=== PATIENT | female | born 1995 | race American Indian/Alaskan Native ===

== ENCOUNTER 2016-10-24 11:39 | Inpatient (IN) | payer MEDICAID ==
[2016-10-24 13:02] LABS: Basophils % (Auto) 0.5 % (0.0-1.8); Eosinophils % (Auto) 1.6 % (0.0-4.3); Hematocrit 30.8 % (30.3-42.9); Hemoglobin 9.8 gm/dl (10.1-14.3); Mean Corpuscular HGB Conc 32 % (30-34); Mean Corpuscular Hemoglobin 25 pg (28-32); Mean Corpuscular Volume 78 fl (79-97); Platelet Count 325 K/mm3 (140-440); Red Blood Count 3.93 M/mm3 (3.65-5.03); Red Cell Distribution Width 16.4 % (13.2-15.2); White Blood Count 13.6 K/mm3 (4.5-11.0)
[2016-10-24] MEDS ORDERED: SUBLIMAZE IV ONE (13:52)
[2016-10-24] MEDS ORDERED: POLYCILLIN/NS 2 GM/100 ML 2 GM/100 ML BAG IV ONE (14:00)
--- NOTE | 2016-10-24 14:06 | Progress Note ---
Subjective - Subjective Date of service: 10/24/16 Principal diagnosis: Active labor at term, SROM Objective - Vital Signs Latest vital signs: Vital Signs Temp Pulse Resp BP Pulse Ox 10/24/16 12:31 97.8 F 18 98 10/24/16 11:59 67 113/64 Intake and Output 10/23/16 10/24/16 10/24/16 22:59 06:59 14:59 Other: Weight 149 lb Patient Weight 10/25/16 06:59 Weight 149 lb - Labs Labs: Abnormal lab results 10/24/16 Range/Units 12:40 WBC 13.6 H (4.5-11.0) K/mm3 Hgb 9.8 L (10.1-14.3) gm/dl MCV 78 L (79-97) fl MCH 25 L (28-32) pg RDW 16.4 H (13.2-15.2) % [place] % (Auto) 10.2 H (0.0-7.3) % [place] # 1.4 H (0.0-0.8) K/mm3 Seg Neutrophils % 74.0 H (40.0-70.0) % Seg Neutrophils # 10.1 H (1.8-7.7) K/mm3
--- NOTE | 2016-10-24 14:11 | History and Physical Report ---
History of Present Illness Date of examination: 10/24/16 Date of admission: 10/24/16 13:16 Chief complaint: Spontaneous onset of labor with SROM at term History of present illness: 20 yo Late care at 16. 4 weeks with [facility]. Hx of anemia, vitamin D deficiency, and ABS. Boostrix on 08/26/16. 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 Social history: denies: smoking, alcohol abuse, prescription drug abuse, IV drug use - Obstetrical History Expected Date of Delivery: 10/24/16 Actual Gestation: 40 Week(s) 1 Day(s) : 2 Para: 1 Hx # Term Pregnancies: 1 Number of Pregnancies: 0 Spontaneous Abortions: 0 Induced : 0 Number of Living Children: 1 #1 Gender: Male year: Method of Delivery: Vaginal Gestational age at delivery: 39 Medications and Allergies Allergies Allergy/AdvReac Type Severity Reaction Status Date / Time No Known Allergies Allergy Verified 08/10/13 16:29 Home Medications Medication Instructions Recorded Confirmed Last Taken Type No Known Home Medications [No 10/24/16 10/24/16 Unknown History Reported Home Medications] Active Meds: Active Medications Ampicillin Sodium (Polycillin/Ns 2 Gm/100 Ml) 2 gm in 100 mls @ 100 mls/hr IV ONCE ONE Stop: 10/24/16 14:59 Lactated Ringer's (Lactated Ringers) 1,000 mls @ 125 mls/hr IV DIRECT [place] Review of Systems All systems: negative - Vital Signs Vital signs: Vital Signs Pulse BP 67 113/64 10/24/16 11:59 10/24/16 11:59 Temp Pulse Resp BP Pulse Ox 97.8 F 67 18 113/64 98 10/24/16 12:31 10/24/16 11:59 10/24/16 12:31 10/24/16 11:59 10/24/16 12:31 - Physical Exam Breasts: Positive: deferred Cardiovascular: Regular rate Lungs: Positive: Normal air movement Abdomen: Positive: normal appearance, soft Genitourinary (Female): Positive: normal external genitalia Vagina: Positive: normal moisture Uterus: Positive: enlarged, normal contour Extremities: Positive: normal Deep Tendon Reflex Grade: Normal +2 - Obstetrical FHR: category 1 Uterine Contraction Monitor Mode: External Cervical Dilatation: 3 (Per RN) Cervical Effacement Percentage: 70 station: -2 Uterine Contraction Frequency (min): 2-5 Uterine Contraction Duration: 60-120 Uterine Contraction Pattern: Irregular Uterine Tone Measurement Phase: Resting Uterine Contraction Intensity: Moderate Results Result Diagrams: 10/24/16 12:40 Abnormal lab results 10/24/16 Range/Units 12:40 WBC 13.6 H (4.5-11.0) K/mm3 Hgb 9.8 L (10.1-14.3) gm/dl MCV 78 L (79-97) fl MCH 25 L (28-32) pg RDW 16.4 H (13.2-15.2) % [place] % (Auto) 10.2 H (0.0-7.3) % [place] # 1.4 H (0.0-0.8) K/mm3 Seg Neutrophils % 74.0 H (40.0-70.0) % Seg Neutrophils # 10.1 H (1.8-7.7) K/mm3 All other labs normal. Assessment and Plan A: 20 yo with IUP @ 40 weeks Category 1 FHT Active labor GBS positive P: Routine care Continuous monitoring Pain medications/epidural prn GBS prophylaxis Expect vaginal delivery
[2016-10-24] MEDS: LACTATED RINGERS 1,000 ML IV SCH ×3 (14:12→18:22)
[2016-10-24] MEDS ORDERED: ePHEDrine SULFATE IV PRN (16:28)
[2016-10-24] MEDS ORDERED: NARCAN 2 MG/2 ML IV PRN (16:28)
--- NOTE | 2016-10-24 16:28 | Anesthesia Consultation ---
Anesthesia Consult and Med Hx Date of service: 10/24/16 - Airway Anesthetic Teeth Evaluation: Good ROM Head & Neck: Adequate Mental/Hyoid Distance: Adequate Mallampati Class: Class II Intubation Access Assessment: Probably Good - Pulmonary Exam CTA: Yes - Cardiac Exam Cardiac Exam: RRR - Pre-Operative Health Status ASA Pre-Surgery Classification: ASA2 Proposed Anesthetic Plan: Epidural - Pulmonary Hx Asthma: Yes (as a child) COPD: No Hx Pneumonia: No - Cardiovascular System Hx Hypertension: No - Central Nervous System Hx Seizures: No Hx Psychiatric Problems: No - Endocrine Hx Renal Disease: No Hx End Stage Renal Disease: No Hx Hypothyroidism: No Hx Hyperthyroidism: No - Hematic Hx Anemia: No Hx Sickle Cell Disease: No - Other Systems Hx Alcohol Use: Yes (occas. drink)
[2016-10-24] MEDS ORDERED: fentaNYL-BUPIV 2 MCG/ML-0.125% 200 MCG/100 ML BAG EPIDURAL SCH (17:00)
--- NOTE | 2016-10-24 17:00 | Progress Note ---
Assessment and Plan A. Term IUP SROM, GBS +, Active labor Ctx spaced out since epidural FHR reassuring P Continue ongoing OB assessments Initiate pitocin augmentation Anticipate Subjective - Subjective Date of service: 10/24/16 Patient reports: other (Comfortable now with epidural in place. ) Objective - Vital Signs Vital Signs: Vital Signs - 12hr 10/24/16 10/24/16 10/24/16 11:59 12:31 14:44 Temperature 97.8 F Pulse Rate 67 Pulse Rate [ From Monitor] Respiratory 18 18 Rate Blood Pressure 113/64 Blood Pressure [Right Arm] O2 Sat by Pulse 98 Oximetry 10/24/16 10/24/16 10/24/16 15:58 16:03 16:05 Temperature Pulse Rate 92 H Pulse Rate [ From Monitor] Respiratory Rate Blood Pressure 115/59 Blood Pressure [Right Arm] O2 Sat by Pulse 100 83 L 84 Oximetry 10/24/16 10/24/16 10/24/16 16:12 16:17 16:18 Temperature Pulse Rate 96 H 100 H 88 Pulse Rate [ From Monitor] Respiratory Rate Blood Pressure 120/64 115/56 Blood Pressure [Right Arm] O2 Sat by Pulse 71 L 99 Oximetry 10/24/16 10/24/16 10/24/16 16:20 16:22 16:25 Temperature Pulse Rate 90 91 H 88 Pulse Rate [ From Monitor] Respiratory Rate Blood Pressure 112/57 110/57 111/53 Blood Pressure [Right Arm] O2 Sat by Pulse 98 Oximetry 10/24/16 10/24/16 10/24/16 16:27 16:29 16:30 Temperature Pulse Rate 84 91 H 93 H Pulse Rate [ From Monitor] Respiratory Rate Blood Pressure 99/49 102/59 102/54 Blood Pressure [Right Arm] O2 Sat by Pulse 98 Oximetry 10/24/16 10/24/16 10/24/16 16:32 16:35 16:36 Temperature 97.7 F Pulse Rate 99 H 91 H Pulse Rate [ 88 From Monitor] Respiratory 18 Rate Blood Pressure 104/56 Blood Pressure 104/56 [Right Arm] O2 Sat by Pulse 99 99 Oximetry 10/24/16 10/24/16 10/24/16 16:37 16:41 16:42 Temperature Pulse Rate 87 98 H 74 Pulse Rate [ From Monitor] Respiratory Rate Blood Pressure 110/59 Blood Pressure [Right Arm] O2 Sat by Pulse 100 100 Oximetry 10/24/16 10/24/16 10/24/16 16:46 16:47 16:51 Temperature Pulse Rate 93 H 89 75 Pulse Rate [ From Monitor] Respiratory Rate Blood Pressure 98/64 111/55 Blood Pressure [Right Arm] O2 Sat by Pulse 100 Oximetry 10/24/16 16:52 Temperature Pulse Rate 87 Pulse Rate [ From Monitor] Respiratory Rate Blood Pressure Blood Pressure [Right Arm] O2 Sat by Pulse 99 Oximetry - Exam Breasts: deferred Lungs: Normal air movement Abdomen: Present: normal appearance, soft Vulva: both: normal FHR: category 1 Uterine Contraction Monitor Mode: External Cervical Dilatation: 6.5 (BBOW palpated and AROM'd with clear fluid) Cervical Effacement Percentage: 80 station: -2 Uterine Contraction Pattern: Irregular Uterine Contraction Intensity: Moderate - Labs Labs: Abnormal Labs 10/24/16 12:40 WBC 13.6 H Hgb 9.8 L MCV 78 L MCH 25 L RDW 16.4 H [place] % (Auto) 10.2 H [place] # 1.4 H Seg Neutrophils % 74.0 H Seg Neutrophils # 10.1 H Laboratory Results - last 24 hr 10/24/16 10/24/16 12:40 12:40 WBC 13.6 H RBC 3.93 Hgb 9.8 L Hct 30.8 MCV 78 L MCH 25 L MCHC 32 RDW 16.4 H Plt Count 325 Lymph % (Auto) 13.7 [place] % (Auto) 10.2 H Eos % (Auto) 1.6 Baso % (Auto) 0.5 Lymph # 1.9 [place] # 1.4 H Eos # 0.2 Baso # 0.1 Seg Neutrophils % 74.0 H Seg Neutrophils # 10.1 H Blood Type A POSITIVE Antibody Screen Negative
[2016-10-24] MEDS: PITOCin/NS 30 UNIT/500ML 30 UNITS/500 ML BAG IV SCH ×2 (17:21→18:03)
[2016-10-24] MEDS ORDERED: POLYCILLIN/NS 1 GM/50 ML 1 GM/50 ML BAG IV SCH (18:21)
--- NOTE | 2016-10-24 18:31 | Progress Note ---
Assessment and Plan A: with IUP @40 weeks SOOL, SROM with AROM of forebag Epidural in place Adequate progess with pitocin augmentation Category 1 FHT GBS+ P: Continue pitocin augmentation Continuious monitoring Epidural pain management GBS prophylaxis Expect vaginal delivery Subjective - Subjective Date of service: 10/24/16 Interval history: 20 yo Late care at 16. 4 weeks with [facility]. Hx of anemia, vitamin D deficiency, and ABS. Boostrix on 08/26/16. Patient reports: other (Comfortable now with epidural in place. ) Objective - Vital Signs Vital Signs: Vital Signs - 12hr 10/24/16 10/24/16 10/24/16 11:59 12:31 14:44 Temperature 97.8 F Pulse Rate 67 Pulse Rate [ From Monitor] Respiratory 18 18 Rate Blood Pressure 113/64 Blood Pressure [Right Arm] O2 Sat by Pulse 98 Oximetry 10/24/16 10/24/16 10/24/16 15:58 16:03 16:05 Temperature Pulse Rate 92 H Pulse Rate [ From Monitor] Respiratory Rate Blood Pressure 115/59 Blood Pressure [Right Arm] O2 Sat by Pulse 100 83 L 84 Oximetry 10/24/16 10/24/16 10/24/16 16:12 16:17 16:18 Temperature Pulse Rate 96 H 100 H 88 Pulse Rate [ From Monitor] Respiratory Rate Blood Pressure 120/64 115/56 Blood Pressure [Right Arm] O2 Sat by Pulse 71 L 99 Oximetry 10/24/16 10/24/16 10/24/16 16:20 16:22 16:25 Temperature Pulse Rate 90 91 H 88 Pulse Rate [ From Monitor] Respiratory Rate Blood Pressure 112/57 110/57 111/53 Blood Pressure [Right Arm] O2 Sat by Pulse 98 Oximetry 10/24/16 10/24/16 10/24/16 16:27 16:29 16:30 Temperature Pulse Rate 84 91 H 93 H Pulse Rate [ From Monitor] Respiratory Rate Blood Pressure 99/49 102/59 102/54 Blood Pressure [Right Arm] O2 Sat by Pulse 98 Oximetry 10/24/16 10/24/16 10/24/16 16:32 16:35 16:36 Temperature 97.7 F Pulse Rate 99 H 91 H Pulse Rate [ 88 From Monitor] Respiratory 18 Rate Blood Pressure 104/56 Blood Pressure 104/56 [Right Arm] O2 Sat by Pulse 99 99 Oximetry 10/24/16 10/24/16 10/24/16 16:37 16:41 16:42 Temperature Pulse Rate 87 98 H 74 Pulse Rate [ From Monitor] Respiratory Rate Blood Pressure 110/59 Blood Pressure [Right Arm] O2 Sat by Pulse 100 100 Oximetry 10/24/16 10/24/16 10/24/16 16:46 16:47 16:51 Temperature Pulse Rate 93 H 89 75 Pulse Rate [ From Monitor] Respiratory Rate Blood Pressure 98/64 111/55 Blood Pressure [Right Arm] O2 Sat by Pulse 100 Oximetry 10/24/16 10/24/16 10/24/16 16:52 16:56 16:57 Temperature 97.9 F Pulse Rate 87 70 78 Pulse Rate [ 78 From Monitor] Respiratory 18 Rate Blood Pressure 98/51 Blood Pressure 158/89 [Right Arm] O2 Sat by Pulse 99 100 Oximetry 10/24/16 10/24/16 10/24/16 17:01 17:03 17:06 Temperature Pulse Rate 70 71 72 Pulse Rate [ From Monitor] Respiratory Rate Blood Pressure 106/53 104/55 Blood Pressure [Right Arm] O2 Sat by Pulse 100 Oximetry 10/24/16 10/24/16 10/24/16 17:07 17:10 17:12 Temperature Pulse Rate 66 87 81 Pulse Rate [ From Monitor] Respiratory Rate Blood Pressure 106/64 Blood Pressure [Right Arm] O2 Sat by Pulse 99 99 Oximetry 10/24/16 10/24/16 10/24/16 17:15 17:17 17:20 Temperature Pulse Rate 73 71 65 Pulse Rate [ From Monitor] Respiratory Rate Blood Pressure 107/59 108/59 Blood Pressure [Right Arm] O2 Sat by Pulse 100 Oximetry 10/24/16 10/24/16 10/24/16 17:22 17:24 17:26 Temperature Pulse Rate 75 91 H 98 H Pulse Rate [ From Monitor] Respiratory Rate Blood Pressure 123/75 Blood Pressure [Right Arm] O2 Sat by Pulse 99 88 Oximetry 10/24/16 10/24/16 10/24/16 17:27 17:28 17:30 Temperature Pulse Rate 81 75 91 H Pulse Rate [ From Monitor] Respiratory Rate Blood Pressure 116/66 108/63 Blood Pressure [Right Arm] O2 Sat by Pulse 99 Oximetry 10/24/16 10/24/16 10/24/16 17:32 17:36 17:37 Temperature Pulse Rate 77 95 H 76 Pulse Rate [ From Monitor] Respiratory Rate Blood Pressure 119/69 Blood Pressure [Right Arm] O2 Sat by Pulse 99 100 Oximetry 10/24/16 10/24/16 10/24/16 17:42 17:47 17:52 Temperature Pulse Rate 121 H 73 95 H Pulse Rate [ From Monitor] Respiratory Rate Blood Pressure Blood Pressure [Right Arm] O2 Sat by Pulse 98 99 99 Oximetry 10/24/16 10/24/16 10/24/16 17:53 17:57 18:02 Temperature Pulse Rate 93 H 101 H 93 H Pulse Rate [ From Monitor] Respiratory Rate Blood Pressure 121/68 Blood Pressure [Right Arm] O2 Sat by Pulse 98 99 Oximetry 10/24/16 10/24/16 10/24/16 18:03 18:07 18:12 Temperature Pulse Rate 94 H 98 H 87 Pulse Rate [ From Monitor] Respiratory Rate Blood Pressure 116/75 Blood Pressure [Right Arm] O2 Sat by Pulse 97 98 Oximetry 10/24/16 10/24/16 18:18 18:19 Temperature Pulse Rate 90 84 Pulse Rate [ From Monitor] Respiratory Rate Blood Pressure 117/59 Blood Pressure [Right Arm] O2 Sat by Pulse 99 Oximetry - Exam Cardiovascular: Regular rate Lungs: Normal air movement Uterus: Present: normal FHR: category 1 Uterine Contraction Monitor Mode: External Cervical Dilatation: 8 Cervical Effacement Percentage: 80 station: -1--2 Uterine Contraction Frequency (min): q2-3 Uterine Contraction Pattern: Regular Uterine Contraction Intensity: Strong/Firm - Labs Labs: Abnormal Labs 10/24/16 12:40 WBC 13.6 H Hgb 9.8 L MCV 78 L MCH 25 L RDW 16.4 H [place] % (Auto) 10.2 H [place] # 1.4 H Seg Neutrophils % 74.0 H Seg Neutrophils # 10.1 H Laboratory Results - last 24 hr 10/24/16 10/24/16 12:40 12:40 WBC 13.6 H RBC 3.93 Hgb 9.8 L Hct 30.8 MCV 78 L MCH 25 L MCHC 32 RDW 16.4 H Plt Count 325 Lymph % (Auto) 13.7 [place] % (Auto) 10.2 H Eos % (Auto) 1.6 Baso % (Auto) 0.5 Lymph # 1.9 [place] # 1.4 H Eos # 0.2 Baso # 0.1 Seg Neutrophils % 74.0 H Seg Neutrophils # 10.1 H Blood Type A POSITIVE Antibody Screen Negative
[2016-10-24] MEDS ORDERED: PITOCin/NS 20 UNIT/1000ML DRIP 20,000 MILLIUNITS/1,000 ML BAG IV ONE (18:57)
--- NOTE | 2016-10-24 19:55 | Procedure Note ---
OB Delivery Note - Delivery Date of Delivery: 10/24/16 (1928) Surgeon: KATIE ISAAC Estimated blood loss: 100cc - Vaginal Delivery position: OA (Baby Arnav delivered, over intact perineum, weighing 7# 14oz. He responded to stimulation and was placed on mom's chest for skin to skin. Cord clamped and cut by Grandmother at 5 minutes of life. Mom and baby doing well.) Intrapartum events: none Delivery induction: none Delivery augmentation: pitocin Delivery monitor: external FHT, external uterine Route of delivery: Delivery placenta: spontaneous (An delivery) Delivery cord: 3 umbilical vessels Episiotomy: none Delivery laceration: other (bilateral labial laceration, hemostatic and self approximated.) Anesthesia: epidural - Infant A at 1 minute: 8 at 5 minutes: 9 Gender: Male (Arnav)
[2016-10-24] MEDS ORDERED: ZOFRAN IV PRN (20:07)
[2016-10-24] MEDS ORDERED: MILK OF MAGNESIA PO PRN (20:07)
[2016-10-24] MEDS ORDERED: DERMOPLAST TP PRN (20:07)
[2016-10-24] MEDS ORDERED: TUCKS PAD TP PRN (20:07)
[2016-10-24] MEDS ORDERED: LANSINOH TP PRN (20:07)
[2016-10-24] MEDS ORDERED: ANUCORT-HC PR PRN (20:07)
[2016-10-24] MEDS ORDERED: DULCOLAX PR PRN (20:07)
[2016-10-24] MEDS ORDERED: NORCO 5/325 PO PRN (20:07)
[2016-10-24] MEDS ORDERED: TYLENOL PO PRN (20:07)
[2016-10-24] MEDS ORDERED: SODIUM CHLORIDE FLUSH SYRINGE 10 ML IV NR (21:00)
[2016-10-24] MEDS: MOTRIN PO SCH (22:37)
[2016-10-25] MEDS: MOTRIN PO SCH ×4 (05:46→21:00)
--- NOTE | 2016-10-25 09:12 | Progress Note ---
Assessment and Plan A: IUP term delivered s/p P: Routine care Discharge tomorrow Subjective - Subjective Date of service: 10/25/16 Interval history: 20 yo Late care at 16. 4 weeks with [facility]. Hx of anemia, vitamin D deficiency, and ABS. Boostrix on 08/26/16. Patient reports: appetite normal, voiding normally, pain well controlled, ambulating normally : doing well Objective - Vital Signs Latest vital signs: Vital Signs Temp Pulse Pulse Resp BP BP Pulse Ox 10/25/16 05:00 98.1 F 73 20 112/68 10/25/16 00:00 98.8 F 79 20 118/54 10/24/16 21:24 98.4 F 86 20 106/63 10/24/16 20:33 81 118/60 10/24/16 20:03 96 H 136/59 10/24/16 19:55 98.1 F 18 10/24/16 19:48 102 H 133/51 10/24/16 19:23 104 H 100 10/24/16 19:18 102 H 100 10/24/16 19:13 97 H 100 10/24/16 19:08 92 H 99 10/24/16 19:04 100 H 142/64 10/24/16 19:03 98.4 F 101 H 93 H 20 142/64 99 10/24/16 18:58 96 H 100 10/24/16 18:53 85 100 10/24/16 18:49 77 94/52 10/24/16 18:48 80 99 10/24/16 18:43 76 99 10/24/16 18:38 93 H 98 10/24/16 18:34 75 100/52 10/24/16 18:33 94 H 99 10/24/16 18:28 93 H 100 10/24/16 18:23 69 100 10/24/16 18:19 84 117/59 10/24/16 18:18 90 99 10/24/16 18:12 87 98 10/24/16 18:07 98 H 97 10/24/16 18:03 94 H 116/75 10/24/16 18:02 93 H 99 10/24/16 17:57 101 H 98 10/24/16 17:53 93 H 121/68 10/24/16 17:52 95 H 99 10/24/16 17:47 73 99 10/24/16 17:42 121 H 98 10/24/16 17:37 76 100 10/24/16 17:36 95 H 119/69 10/24/16 17:32 77 99 10/24/16 17:30 91 H 108/63 10/24/16 17:28 75 116/66 10/24/16 17:27 81 99 10/24/16 17:26 98 H 123/75 10/24/16 17:24 91 H 88 10/24/16 17:22 75 99 10/24/16 17:20 65 108/59 10/24/16 17:17 71 100 10/24/16 17:15 73 107/59 10/24/16 17:12 81 99 10/24/16 17:10 87 106/64 10/24/16 17:07 66 99 10/24/16 17:06 72 104/55 10/24/16 17:03 71 100 10/24/16 17:01 70 106/53 10/24/16 16:57 97.9 F 78 78 18 158/89 100 10/24/16 16:56 70 98/51 10/24/16 16:52 87 99 10/24/16 16:51 75 111/55 10/24/16 16:47 89 100 10/24/16 16:46 93 H 98/64 10/24/16 16:42 74 100 10/24/16 16:41 98 H 110/59 10/24/16 16:37 87 100 10/24/16 16:36 97.7 F 88 18 104/56 99 10/24/16 16:35 91 H 104/56 10/24/16 16:32 99 H 99 10/24/16 16:30 93 H 102/54 10/24/16 16:29 91 H 102/59 10/24/16 16:27 84 99/49 98 10/24/16 16:25 88 111/53 10/24/16 16:22 91 H 110/57 98 10/24/16 16:20 90 112/57 10/24/16 16:18 88 115/56 10/24/16 16:17 100 H 120/64 99 10/24/16 16:12 96 H 71 L 10/24/16 16:05 84 10/24/16 16:03 83 L 10/24/16 15:58 92 H 115/59 100 10/24/16 14:44 18 10/24/16 12:31 97.8 F 18 98 10/24/16 11:59 67 113/64 Intake and Output 10/24/16 10/25/16 10/25/16 22:59 06:59 14:59 Intake Total 2300 865 Output Total 950 700 Balance 1350 165 Intake: IV 2300 625 Lactated Ringers 1,000 ml 2000 @ 125 mls/hr IV DIRECT [place] Rx#:[id number] PITOCin/NS 20 UNIT/1000ML 250 625 DRIP 20,000 milliunits In 1,000 ml As IV .STK- MED ONE Rx#:[id number] POLYCILLIN/NS 1 GM/50 ML 50 1 gm In 50 ml @ 100 mls/ hr IV Q4HR [place] Rx#: [id number] Intake, Free Water 240 Output: Urine 900 700 Void 900 700 Emesis 50 Other: Total, Output Amount 900 700 Estimated Blood Loss 100 - Exam Cardiovascular: Present: Regular rate Lungs: Present: Normal air movement Abdomen: Present: normal appearance, soft Uterus: Present: normal, firm, fundal height below umbilicus Extremities: Present: normal Deep Tendon Reflex Grade: Normal +2 - Labs Labs: Abnormal lab results 10/24/16 Range/Units 12:40 WBC 13.6 H (4.5-11.0) K/mm3 Hgb 9.8 L (10.1-14.3) gm/dl MCV 78 L (79-97) fl MCH 25 L (28-32) pg RDW 16.4 H (13.2-15.2) % [place] % (Auto) 10.2 H (0.0-7.3) % [place] # 1.4 H (0.0-0.8) K/mm3 Seg Neutrophils % 74.0 H (40.0-70.0) % Seg Neutrophils # 10.1 H (1.8-7.7) K/mm3
--- NOTE | 2016-10-25 09:16 | Discharge Summary ---
Providers - Providers Date of Admission: 10/24/16 13:16 Date of discharge: 10/26/16 Attending physician: OZZY LOMBARDI MD Primary care physician: DIRECTOR OF CARDIAC CATH LAB Hospitalization Delivery: Laceration: other (bilateral labial hemostatic and self approximated) Discharge diagnosis: IUP at term delivered baby: male (Arnav) Hospital course: uneventful Condition at discharge: Good Disposition: DISCHARGED TO HOME OR SELFCARE Plan - Provider Discharge Summary Activity: routine, no sex for 6 weeks, no heavy lifting 4 weeks, no strenuous exercise Diet: routine Instructions: routine Additional instructions: [] Smoking cessation referral if applicable(refer to patient education folder for contact #) [] Refer to [facility] Booklet Call your doctor immediately for: * Fever > 100.5 * Heavy vaginal bleeding ( >1 pad per hour) * Severe persistent headache * Shortness of breath * Reddened, hot, painful area to leg or breast * Drainage or odor from incision. * Keep incision clean and dry at all times and follow doctor's instructions regarding bathing/showering - Follow up plan Follow up: [facility] [Provider Group] - 6 Weeks
--- NOTE | 2016-10-25 09:55 | Progress Note ---
Subjective Date of service: 10/25/16 Principal diagnosis: interuterine Interval history: Patient seen post-delivery day 1, very satisfied with epidural during labor, ambulating well, has some soreness where epidural was placed. Objective - Constitutional Vitals: Vital Signs - 12hr 10/25/16 10/25/16 00:00 05:00 Temperature 98.8 F 98.1 F Pulse Rate [ 79 73 From Monitor] Respiratory 20 20 Rate Blood Pressure 118/54 112/68 [Right Arm] - Labs CBC & Chem 7: 10/24/16 12:40 Labs: Abnormal lab results 10/24/16 Range/Units 12:40 WBC 13.6 H (4.5-11.0) K/mm3 Hgb 9.8 L (10.1-14.3) gm/dl MCV 78 L (79-97) fl MCH 25 L (28-32) pg RDW 16.4 H (13.2-15.2) % [place] % (Auto) 10.2 H (0.0-7.3) % [place] # 1.4 H (0.0-0.8) K/mm3 Seg Neutrophils % 74.0 H (40.0-70.0) % Seg Neutrophils # 10.1 H (1.8-7.7) K/mm3
[2016-10-25] MEDS ORDERED: PRENATAL VITAMIN PO SCH (10:00)
[2016-10-25 10:40] LABS: Hematocrit 28.6 % (30.3-42.9); Hemoglobin 9.3 gm/dl (10.1-14.3)
[2016-10-26] MEDS: MOTRIN PO SCH (04:44)
[2016-10-26 12:13] VITALS: BP 111/51
== END 2016-10-26 13:10 | disposition home or self-care (01) | DRG 775 ==
LOC: TRG 11:39 → LD 13:16 → OB 21:27
PROVIDERS: ADMIT Obstetrics & Gynecology; ATTEND Obstetrics & Gynecology
PROC: 10E0XZZ Delivery of Products of Conception, External Approach (ICD-10-PCS; principal; 2016-10-24)
PROC: 3E0S3CZ (ICD-10-PCS; 2016-10-24)
PROC: 00HU33Z Insertion of Infusion Device into Spinal Canal, Percutaneous Approach (ICD-10-PCS; 2016-10-24)
DX: O42.92 Full-term premature rupture of membranes, unspecified as to length of time between rupture and onset of labor (principal); O99.824 Streptococcus B carrier state complicating childbirth; O99.52 Diseases of the respiratory system complicating childbirth; Z37.0 Single live birth; Z3A.40 40 weeks gestation of pregnancy; J45.909 Unspecified asthma, uncomplicated; O70.0 First degree perineal laceration during delivery
CPT/HCPCS: 36415; 85014; 85018; 85025; 86850; 86900; 86901; 99211; A6250; G0463; J0290; J2590; J3010; J7120

== ENCOUNTER 2019-02-11 00:02 | Outpatient (CLI) | payer MEDICAID ==
[2019-02-11 00:55] VITALS: BP 114/64
--- NOTE | 2019-02-12 20:58 | Ultrasound Report ---
PROCEDURE: US OB FOLLOW UP TECHNIQUE: Real-time transabdominal sonography of the uterus, placenta, amniotic fluid, adnexa, and fetus was performed with image documentation. Measurements were obtained to determine age/size. M-mode Doppler was used to document heartbeat. ADDITIONAL GESTATION: None HISTORY: wellbeing COMPARISONS: None. FINDINGS: IUP: Single live intrauterine gestation. Position: Cephalic Placental position: Right lateral and grade 1., without previa . Amniotic fluid volume Normal. ARLINE is 8.7 cm. Cardiac activity: Regular rhythm at 140 bpm. ANATOMY: Not evaluated. BIOMETRY: Biparietal diameter: 9.2 cm corresponding to 37 weeks and 2 days. Head circumference: 33.3 cm corresponding to 38 weeks. abdominal circumference: 3.4 cm corresponding to 30 weeks and 1 day. Femur length: 7.5 cm corresponding to 30 weeks and 2 days. Ratio biometry: Normal . Estimated Weight: 3375 grams +/- grams. ounces +/- .ounces. . percentile. Mean Gestational Age (composite criteria) based on today's measurements: 38 weeks. Estimated Due Date (earliest scan): 02/26/2019. IMPRESSION: Single live intrauterine gestation at 38 weeks. Estimated due date: 02/26/2019. This document is electronically signed by Rodney Claros MD., Feb 12 2019 09:56:30 PM ET
== END 2019-02-11 01:11 | disposition home or self-care (01) ==
LOC: TRG 00:02
PROVIDERS: ATTEND Obstetrics & Gynecology
DX: O47.1 False labor at or after 37 completed weeks of gestation (principal); Z3A.40 40 weeks gestation of pregnancy
CPT/HCPCS: 59025

== ENCOUNTER 2019-02-12 18:21 | Outpatient (CLI) | payer MEDICAID ==
[2019-02-12 20:49] VITALS: BP 110/59
--- NOTE | 2019-02-12 21:01 | Ultrasound Report ---
PROCEDURE: US OB BPP WO NON-STRESS TECHNIQUE: Sonographic evaluation for breathing, movement, tone, and amniotic flui d volume was performed. HISTORY: well being COMPARISONS: None . FINDINGS: FETUS Amniotic fluid volume Normal-score 2. At least one vertical pocket >2 cm or more in vertical axis . breathing: Normal-score 2 . movement: Normal-score 2 . tone: Normal-score 2 . Score: 8 of 8 . heart rate 140 bpm. IMPRESSION: Normal biophysical profile . This document is electronically signed by Rodney Claros MD., Feb 12 2019 09:59:24 PM ET
--- NOTE | 2019-02-13 15:09 | Event Note ---
Date: 02/12/19 Triage patient on 02/12/19: 23 year old presents for US at 40 3/7 weeks. Sent from office for BPP. BPP 04/22. Normal ARLINE reported by branch service specialist. Reactive NST. Active movement. Patient is scheduled for induction of labor on Friday02/15/19. Advised patient to perform daily movement counting. Signs of labor and warning signs of late discussed with patient.
== END 2019-02-12 20:57 | disposition home or self-care (01) ==
LOC: TRG 18:21
PROVIDERS: ATTEND Obstetrics & Gynecology
DX: O47.1 False labor at or after 37 completed weeks of gestation (principal); Z3A.40 40 weeks gestation of pregnancy
CPT/HCPCS: 59025; 76816; 76819

== ENCOUNTER 2019-02-14 21:13 | Inpatient (IN) | payer MEDICAID ==
[2019-02-15] MEDS ORDERED: BRETHINE IVP PRN (01:52)
[2019-02-15] MEDS ORDERED: SUBLIMAZE IV PRN (01:52)
[2019-02-15] MEDS ORDERED: BRETHINE SUB-Q PRN (01:52)
[2019-02-15] MEDS ORDERED: AMPICILLIN/NS 2 GM/100 ML 2 GM/100 ML BAG IV ONE (01:52)
[2019-02-15] MEDS ORDERED: XYLOCAINE 2% INFILTRATI ONE (01:52)
[2019-02-15] MEDS ORDERED: LACTATED RINGERS 1,000 ML ONE (01:56)
[2019-02-15] MEDS ORDERED: SUBLIMAZE ONE (01:56)
[2019-02-15] MEDS: LACTATED RINGERS 1,000 ML IV SCH ×3 (02:00→06:11)
[2019-02-15] MEDS ORDERED: PITOCin/NS 20 UNIT/1000ML DRIP 20 UNITS/1,000 ML BAG IV SCH (02:00)
[2019-02-15 02:19] LABS: Hematocrit 28.6 % (30.3-42.9); Hemoglobin 9.4 gm/dl (10.1-14.3); Mean Corpuscular HGB Conc 33 % (30-34); Mean Corpuscular Volume 78 fl (79-97); Platelet Count 310 K/mm3 (140-440); Red Blood Count 3.67 M/mm3 (3.65-5.03); Red Cell Distribution Width 16.2 % (13.2-15.2)
--- NOTE | 2019-02-15 02:21 | History and Physical Report ---
History of Present Illness Date of examination: 02/15/19 Date of admission: 02/15/19 01:33 Chief complaint: 23 year old presents with complaint of contractions for several days. Patient denies leaking of fluid or vaginal bleeding. Patient reports active movement. Patient received care at [facility] and was able to look up records. LMP 05/23/18. EDC 02/09/19. significant for the following: GBS + (GBS bacteriuria), asthma, late presentation for care, varicella nonimmune, enlarged thyroid (maternal), vitamin D deficiency (supplemented with vitamin D). labs are as follows: A+, antibody screen negative, rubella immune, vari qamar nonimmune, HIV negative, hepatitis B surface antigen negative, RPR nonreactive, quad screen negative, hemoglobin electrophoresis negative, herpes type 2 serology negative, pap negative, GC negative, CT negative, trichomonas negative, 1 hour sugar test 101. Past History Past Medical History: asthma, other (enlarged thyroid) Past Surgical History: no surgical history [employer] History: denies: abnormal PAP smear, chlamydia, gonorrhea, hepatitis B, herpes, HIV, syphilis, trichomonas Family/Genetic History: none Social history: lives with family, full code. denies: smoking, alcohol abuse, prescription drug abuse, IV drug use - Obstetrical History Expected Date of Delivery: 02/09/19 Actual Gestation: 40 Week(s) 6 Day(s) : 4 Para: 2 Hx # Term Pregnancies: 2 Number of Pregnancies: 0 Spontaneous Abortions: 1 Induced : 0 Number of Living Children: 2 Medications and Allergies Allergies Allergy/AdvReac Type Severity Reaction Status Date / Time No Known Allergies Allergy Verified 08/10/13 16:29 Home Medications Medication Instructions Recorded Confirmed Last Taken Type Ferrous Sulfate [Feosol 325 MG tab] 1 tab PO BID 02/15/19 02/15/19 02/13/19 History Vit-Fe Fumar-FA [ 1 tab PO QDAY 02/15/19 02/15/19 02/13/19 History Vitamin] Active Meds: Active Medications Ephedrine Sulfate (Ephedrine Sulfate) 10 mg IV Q2M PRN PRN Reason: Hypotension Fentanyl (Sublimaze) 100 mcg IV Q2H PRN PRN Reason: Labor Pain Last Admin: 02/15/19 02:10 Dose: 100 mcg Documented by: Oxytocin/Sodium Chloride (Pitocin/Ns 20 Unit/1000ml Drip) 20 units in 1,000 mls @ 125 mls/hr IV DIRECT [place] Lactated Ringer's (Lactated Ringers) 1,000 mls @ 125 mls/hr IV DIRECT [place] Last Admin: 02/15/19 02:00 Dose: 1,200 mls/hr Documented by: Ampicillin Sodium (Ampicillin/Ns 2 Gm/100 Ml) 2 gm in 100 mls @ 100 mls/hr IV ONCE ONE; Protocol Stop: 02/15/19 02:51 Last Admin: 02/15/19 02:20 Dose: 100 mls/hr Documented by: Terbutaline Sulfate (Brethine) 0.25 mg SUB-Q ONCE PRN PRN Reason: Hyperstimulation/Hypertonicity Terbutaline Sulfate (Brethine) 0.25 mg IVP ONCE PRN PRN Reason: Hyperstimulation/Hypertonicity Review of Systems All systems: negative (contractions) - Vital Signs Vital signs: Vital Signs Pulse Pulse Ox 79 97 02/14/19 21:32 02/14/19 21:32 Temp Pulse Resp BP Pulse Ox 98.6 F 93 H 22 124/71 98 02/15/19 02:02 02/15/19 01:51 02/15/19 02:02 02/15/19 01:51 02/15/19 01:15 - Physical Exam Cardiovascular: Regular rate Lungs: Positive: Clear to auscultation Abdomen: Positive: normal appearance, soft. Negative: distention, tenderness, guarding, rigidity Genitourinary (Female): Positive: normal external genitalia, normal perenium. Negative: perineal/vulvar lesions (no lesions seen on careful exam with bright light upon admission) Vagina: Positive: normal moisture Uterus: Positive: enlarged Anus/Rectum: Positive: normal perianal skin Extremities: Positive: normal. Negative: tenderness, edema - Obstetrical FHR: category 1 Uterine Contraction Monitor Mode: External Cervical Dilatation: 5 Cervical Effacement Percentage: 90 station: -1 Uterine Contraction Pattern: Regular Uterine Contraction Intensity: Moderate Results Result Diagrams: 02/15/19 01:30 Abnormal lab results 02/15/19 Range/Units 01:30 WBC 12.5 H (4.5-11.0) K/mm3 Hgb 9.4 L (10.1-14.3) gm/dl Hct 28.6 L (30.3-42.9) % MCV 78 L (79-97) fl MCH 26 L (28-32) pg RDW 16.2 H (13.2-15.2) % All other labs normal. Assessment and Plan A: at 40 weeks, 6 days gestation. Active labor. GBS positive. P: Admit. Continuous EFM. GBS prophylaxis. Anticipate vaginal .
[2019-02-15] MEDS ORDERED: NARCAN 2 MG/2 ML IV PRN (04:33)
--- NOTE | 2019-02-15 04:35 | Anesthesia Consultation ---
Anesthesia Consult and Med Hx Date of service: 02/15/19 - Airway Anesthetic Teeth Evaluation: Good ROM Head & Neck: Adequate Mental/Hyoid Distance: Adequate Mallampati Class: Class II Intubation Access Assessment: Probably Good - Pulmonary Exam CTA: Yes - Cardiac Exam Cardiac Exam: RRR - Pre-Operative Health Status ASA Pre-Surgery Classification: ASA2 Proposed Anesthetic Plan: Epidural - Pulmonary Hx Smoking: No Hx Asthma: Yes ("I had asthma at the age of 10") Hx Respiratory Symptoms: No SOB: No COPD: No Home Oxygen Therapy: No Hx Pneumonia: No Hx Sleep Apnea: No - Cardiovascular System Hx Hypertension: No Hx Coronary Artery Disease: No Hx Heart Attack/AMI: No Hx Angina: No Hx Percutaneous Transluminal Coronary Angioplasty (PTCA): No Hx Cardia Arrhythmia: No Hx Pacemaker: No Hx Internal Defibrillator: No Hx Valvular Heart Disease: No Hx Heart Murmur: No Hx Peripheral Vascular Disease: No - Central Nervous System Hx Neuromuscular Disorder: No Hx Seizures: No CVA: No Hx Back Pain: No Hx Psychiatric Problems: No - Gastrointestinal Hx Ulcer: No Hx Gastroesophageal Reflux Disease: Yes - Endocrine Hx Renal Disease: No Hx End Stage Renal Disease: No Hx Cirrhosis: No Hx Liver Disease: No Hx Insulin Dependent Diabetes: No Hx Non-Insulin Dependent Diabetes: No Hx Thyroid Disease: No Hx Hypothyroidism: No Hx Hyperthyroidism: No - Hematic Hx Anemia: No Hx Sickle Cell Disease: No - Other Systems Hx Alcohol Use: No Hx Substance Use: No Hx Cancer: No Hx Obesity: No
[2019-02-15] MEDS ORDERED: fentaNYL-BUPIV 2 MCG/ML-0.125% 200 MCG/100 ML BAG EPIDURAL SCH (05:00)
[2019-02-15] MEDS: AMPICILLIN/NS 1 GM/50 ML 1 GM/50 ML BAG IV SCH ×2 (06:11→09:51)
--- NOTE | 2019-02-15 10:32 | Progress Note ---
Assessment and Plan - Patient Problems (1) 40 weeks gestation of Current Visit: Yes Status: Acute (2) Active labor at term Current Visit: Yes Status: Acute Plan to address problem: Continue current management Start oxytocin for labor augmentation Anticipate vaginal delivery (3) Spontaneous rupture of amniotic membranes Current Visit: Yes Status: Acute (4) Post-dates Current Visit: Yes Status: Acute Qualifiers: Post-term type: 40-42 weeks gestation Qualified Code(s): O48.0 - Post-term Subjective - Subjective Date of service: 02/15/19 Principal diagnosis: IUP @ 40w6d; Active Labor Interval history: see H&P Patient reports: loss of fluid (SROM 02/15/19 @ 09:05), movement normal, contractions, other (epidural in place), no vaginal bleeding Objective - Vital Signs Vital Signs: Vital Signs - 12hr 02/14/19 02/14/19 02/14/19 22:32 22:37 22:42 Temperature Pulse Rate 93 H 84 94 H Respiratory Rate Blood Pressure O2 Sat by Pulse 98 98 95 Oximetry 02/14/19 02/14/19 02/14/19 22:47 22:52 22:57 Temperature Pulse Rate 72 92 H 70 Respiratory Rate Blood Pressure O2 Sat by Pulse 99 99 100 Oximetry 02/14/19 02/14/19 02/14/19 23:05 23:10 23:15 Temperature Pulse Rate 85 80 80 Respiratory Rate Blood Pressure O2 Sat by Pulse 99 99 98 Oximetry 02/14/19 02/14/19 02/14/19 23:20 23:25 23:30 Temperature Pulse Rate 81 76 90 Respiratory Rate Blood Pressure O2 Sat by Pulse 98 98 99 Oximetry 02/14/19 02/14/19 02/14/19 23:35 23:40 23:45 Temperature Pulse Rate 84 86 86 Respiratory Rate Blood Pressure O2 Sat by Pulse 98 98 98 Oximetry 02/14/19 02/14/19 02/15/19 23:50 23:55 00:00 Temperature Pulse Rate 94 H 88 85 Respiratory Rate Blood Pressure O2 Sat by Pulse 98 99 98 Oximetry 02/15/19 02/15/19 02/15/19 00:05 00:10 00:15 Temperature Pulse Rate 98 H 99 H 84 Respiratory Rate Blood Pressure O2 Sat by Pulse 98 99 98 Oximetry 02/15/19 02/15/1919 00:20 00:25 00:30 Temperature Pulse Rate 88 99 H 86 Respiratory Rate Blood Pressure O2 Sat by Pulse 98 99 98 Oximetry 02/15/19 02/15/19 02/15/19 00:35 00:40 00:45 Temperature Pulse Rate 87 88 79 Respiratory Rate Blood Pressure O2 Sat by Pulse 98 98 98 Oximetry 02/15/19 02/15/19 02/15/19 00:50 00:55 01:00 Temperature Pulse Rate 88 87 83 Respiratory Rate Blood Pressure O2 Sat by Pulse 98 98 98 Oximetry 02/15/19 02/15/19 02/15/19 01:05 01:10 01:15 Temperature Pulse Rate 86 90 80 Respiratory Rate Blood Pressure O2 Sat by Pulse 99 98 98 Oximetry 02/15/19 02/15/19 02/15/19 01:51 02:02 02:23 Temperature 98.6 F Pulse Rate 93 H 71 Respiratory 22 Rate Blood Pressure 124/71 106/53 O2 Sat by Pulse Oximetry 02/15/19 02/15/19 02/15/19 03:15 03:20 03:25 Temperature Pulse Rate 71 74 82 Respiratory Rate Blood Pressure O2 Sat by Pulse 98 98 98 Oximetry 02/15/19 02/15/19 02/15/19 03:30 03:35 03:40 Temperature Pulse Rate 64 106 H 78 Respiratory Rate Blood Pressure O2 Sat by Pulse 98 99 96 Oximetry 02/15/19 02/15/19 02/15/19 03:45 03:50 03:55 Temperature Pulse Rate 79 109 H 79 Respiratory Rate Blood Pressure O2 Sat by Pulse 96 100 98 Oximetry 02/15/19 02/15/19 02/15/19 04:00 04:05 04:09 Temperature Pulse Rate 84 92 H 87 Respiratory Rate Blood Pressure 130/65 129/62 O2 Sat by Pulse 99 98 Oximetry 02/15/19 02/15/19 02/15/19 04:10 04:11 04:15 Temperature Pulse Rate 89 82 98 H Respiratory Rate Blood Pressure 126/58 118/57 O2 Sat by Pulse 99 99 Oximetry 02/15/19 02/15/19 02/15/19 04:17 04:18 04:20 Temperature 98.6 F Pulse Rate 93 H 89 Respiratory 18 Rate Blood Pressure 104/51 106/52 O2 Sat by Pulse 98 Oximetry 02/15/19 02/15/19 02/15/19 04:21 04:23 04:25 Temperature Pulse Rate 86 85 90 Respiratory Rate Blood Pressure 103/50 104/57 O2 Sat by Pulse 98 Oximetry 02/15/19 02/15/19 02/15/19 04:28 04:30 04:32 Temperature Pulse Rate 77 87 83 Respiratory Rate Blood Pressure 111/58 99/54 O2 Sat by Pulse 99 Oximetry 02/15/19 02/15/19 02/15/19 04:35 04:36 04:40 Temperature Pulse Rate 91 H 106 H 90 Respiratory Rate Blood Pressure 131/65 125/66 O2 Sat by Pulse 100 98 Oximetry 02/15/19 02/15/19 02/15/19 04:45 04:50 04:55 Temperature Pulse Rate 101 H 94 H 91 H Respiratory Rate Blood Pressure O2 Sat by Pulse 100 100 99 Oximetry 02/15/19 02/15/19 02/15/19 04:58 05:00 05:05 Temperature Pulse Rate 110 H 74 74 Respiratory Rate Blood Pressure 83/45 O2 Sat by Pulse 99 99 Oximetry 02/15/19 02/15/19 02/15/19 05:10 05:14 05:15 Temperature Pulse Rate 84 77 80 Respiratory Rate Blood Pressure 105/52 O2 Sat by Pulse 100 100 Oximetry 02/15/19 02/15/19 02/15/19 05:20 05:25 05:28 Temperature Pulse Rate 80 83 87 Respiratory Rate Blood Pressure 86/51 O2 Sat by Pulse 100 100 Oximetry 02/15/19 02/15/19 02/15/19 05:30 05:35 05:40 Temperature Pulse Rate 81 91 H 77 Respiratory Rate Blood Pressure O2 Sat by Pulse 98 100 98 Oximetry 02/15/19 02/15/19 02/15/19 05:43 05:45 05:50 Temperature Pulse Rate 84 82 82 Respiratory Rate Blood Pressure 85/51 O2 Sat by Pulse 98 97 Oximetry 02/15/19 02/15/19 02/15/19 05:55 05:57 06:00 Temperature Pulse Rate 84 85 100 H Respiratory Rate Blood Pressure 87/51 O2 Sat by Pulse 97 100 Oximetry 02/15/19 02/15/19 02/15/19 06:01 06:03 06:05 Temperature Pulse Rate 92 H 88 79 Respiratory Rate Blood Pressure 82/50 88/54 O2 Sat by Pulse 98 Oximetry 02/15/19 02/15/19 02/15/19 06:10 06:13 06:15 Temperature Pulse Rate 74 95 H 84 Respiratory Rate Blood Pressure 92/51 90/52 O2 Sat by Pulse 100 99 Oximetry 02/15/19 02/15/19 02/15/19 06:16 06:20 06:25 Temperature Pulse Rate 75 76 85 Respiratory Rate Blood Pressure 97/54 O2 Sat by Pulse 98 99 Oximetry 02/15/19 02/15/19 02/15/19 06:30 06:34 06:35 Temperature Pulse Rate 74 68 73 Respiratory Rate Blood Pressure 92/53 O2 Sat by Pulse 99 98 Oximetry 02/15/19 02/15/19 02/15/19 06:40 06:45 06:46 Temperature Pulse Rate 82 78 92 H Respiratory Rate Blood Pressure 87/50 O2 Sat by Pulse 99 97 Oximetry 02/15/19 02/15/19 02/15/19 06:50 06:55 07:00 Temperature Pulse Rate 75 73 88 Respiratory Rate Blood Pressure O2 Sat by Pulse 97 96 97 Oximetry 02/15/19 02/15/19 02/15/19 07:03 07:05 07:10 Temperature Pulse Rate 71 82 83 Respiratory Rate Blood Pressure 84/46 O2 Sat by Pulse 97 97 Oximetry 02/15/19 02/15/19 02/15/19 07:12 07:15 07:16 Temperature Pulse Rate 76 75 76 Respiratory Rate Blood Pressure 98/55 93/48 O2 Sat by Pulse 96 Oximetry 02/15/19 02/15/19 02/15/19 07:20 07:25 07:30 Temperature Pulse Rate 81 73 88 Respiratory Rate Blood Pressure O2 Sat by Pulse 97 98 96 Oximetry 02/15/19 02/15/19 02/15/19 07:32 07:35 07:40 Temperature Pulse Rate 77 82 86 Respiratory Rate Blood Pressure 89/47 O2 Sat by Pulse 95 95 Oximetry 02/15/19 02/15/19 02/15/19 07:45 07:46 07:50 Temperature Pulse Rate 82 86 99 H Respiratory Rate Blood Pressure 88/49 O2 Sat by Pulse 95 97 Oximetry 02/15/19 02/15/19 02/15/19 07:55 08:00 08:02 Temperature Pulse Rate 84 90 96 H Respiratory Rate Blood Pressure 96/55 O2 Sat by Pulse 95 96 Oximetry 02/15/19 02/15/19 02/15/19 08:05 08:10 08:15 Temperature Pulse Rate 97 H 79 94 H Respiratory Rate Blood Pressure O2 Sat by Pulse 97 97 97 Oximetry 02/15/19 02/15/19 02/15/19 08:16 08:20 08:25 Temperature Pulse Rate 84 89 107 H Respiratory Rate Blood Pressure 104/55 O2 Sat by Pulse 96 97 Oximetry 02/15/19 02/15/19 02/15/19 08:30 08:32 08:35 Temperature Pulse Rate 93 H 102 H 103 H Respiratory Rate Blood Pressure 122/57 O2 Sat by Pulse 97 97 Oximetry 02/15/19 02/15/19 02/15/19 08:40 08:45 08:47 Temperature Pulse Rate 90 82 80 Respiratory Rate Blood Pressure 110/59 O2 Sat by Pulse 97 96 Oximetry 02/15/19 02/15/19 02/15/19 08:50 08:55 09:00 Temperature Pulse Rate 88 96 H 94 H Respiratory Rate Blood Pressure O2 Sat by Pulse 97 97 97 Oximetry 02/15/19 02/15/19 02/15/19 09:05 09:10 09:15 Temperature Pulse Rate 85 89 83 Respiratory Rate Blood Pressure O2 Sat by Pulse 98 97 97 Oximetry 02/15/19 02/15/19 02/15/19 09:17 09:20 09:25 Temperature Pulse Rate 98 H 93 H 82 Respiratory Rate Blood Pressure 102/54 O2 Sat by Pulse 97 97 Oximetry 02/15/19 02/15/19 02/15/19 09:30 09:31 09:32 Temperature Pulse Rate 82 86 80 Respiratory Rate Blood Pressure 105/55 104/57 O2 Sat by Pulse 97 Oximetry 02/15/19 02/15/19 02/15/19 09:35 09:40 09:45 Temperature Pulse Rate 79 94 H 93 H Respiratory Rate Blood Pressure O2 Sat by Pulse 98 98 97 Oximetry 02/15/19 02/15/19 02/15/19 09:48 09:50 09:55 Temperature Pulse Rate 90 95 H 94 H Respiratory Rate Blood Pressure 116/59 O2 Sat by Pulse 98 98 Oximetry 02/15/19 02/15/19 02/15/19 10:00 10:01 10:05 Temperature Pulse Rate 84 83 83 Respiratory Rate Blood Pressure 106/58 O2 Sat by Pulse 97 97 Oximetry 02/15/19 02/15/19 02/15/19 10:10 10:15 10:18 Temperature Pulse Rate 86 93 H 86 Respiratory Rate Blood Pressure 107/54 O2 Sat by Pulse 97 98 Oximetry 02/15/19 02/15/19 10:20 10:25 Temperature Pulse Rate 87 81 Respiratory Rate Blood Pressure O2 Sat by Pulse 98 98 Oximetry - Exam FHR: auscultation normal, category 1 FHR comments: baseline 125, moderate variability, 15x15 accels, no decels Uterine Contraction Monitor Mode: External Cervical Dilatation: 8 Cervical Effacement Percentage: 90 station: -2 Uterine Contraction Frequency (min): 2-4 Uterine Contraction Pattern: Regular - Labs Labs: Abnormal Labs 02/15/19 01:30 WBC 12.5 H Hgb 9.4 L Hct 28.6 L MCV 78 L MCH 26 L RDW 16.2 H Laboratory Results - last 24 hr 02/15/19 02/15/19 01:30 01:30 WBC 12.5 H RBC 3.67 Hgb 9.4 L Hct 28.6 L MCV 78 L MCH 26 L MCHC 33 RDW 16.2 H Plt Count 310 Blood Type A POSITIVE Antibody Screen TNR NISA Antibody Screen Negative
[2019-02-15] MEDS ORDERED: PITOCin/NS 30 UNIT/500ML 30 UNITS/500 ML BAG IV SCH (11:00)
--- NOTE | 2019-02-15 12:29 | Procedure Note ---
OB Delivery Note - Delivery Date of Delivery: 02/15/19 (11:56) Surgeon: NANCY RANDALL (CNM) Estimated blood loss: other (150cc) - Vaginal Delivery presentation: compound Delivery position: OA Intrapartum events: none Delivery induction: none Delivery augmentation: pitocin Delivery monitor: external FHT, external uterine Route of delivery: (11:56) Delivery placenta: spontaneous (12:03) Delivery cord: 3 umbilical vessels Episiotomy: none Delivery laceration: none Anesthesia: epidural Delivery comments: of a non-vigorous 8lbs 15oz male on 02/15/19 @ 11:56. Code pink immediately called. Umbilical cord double-clamped & cut. Baby dried, stimulated and bulb- suctioned prior to arrival of NICU team. Upon transferring baby to the warmer, spontaneous cry noted. Spontaneous delivery of placenta, An-side presenting @ 12:03. Small lochia present. Fundal massage and IV Pitocin bolus initiated. Fundus F/ML/U-2. Placenta intact; was discarded. Perineum intact. Mom and baby in stable condition. - A at 1 minute: 7 at 5 minutes: 9 Infant Gender: Male (8lbs 15 oz (4041 gm); 19 in)
[2019-02-15] MEDS ORDERED: BENADRYL PO PRN (12:30)
[2019-02-15] MEDS ORDERED: PHENERGAN PR PRN (12:30)
[2019-02-15] MEDS ORDERED: ZOFRAN IV PRN (12:30)
[2019-02-15] MEDS ORDERED: MILK OF MAGNESIA PO PRN (12:30)
[2019-02-15] MEDS ORDERED: TUCKS PAD TP PRN (12:30)
[2019-02-15] MEDS ORDERED: NORCO 5/325 PO PRN (12:30)
[2019-02-15] MEDS ORDERED: LANSINOH TP PRN (12:30)
[2019-02-15] MEDS ORDERED: TYLENOL PO PRN (12:30)
[2019-02-15] MEDS ORDERED: PHENERGAN PO PRN (12:30)
[2019-02-15] MEDS ORDERED: DULCOLAX PR PRN (12:30)
[2019-02-15] MEDS ORDERED: SODIUM CHLORIDE FLUSH SYRINGE 10 ML IV SCH (14:00)
[2019-02-15] MEDS: IBUPROFEN PO SCH (23:52)
[2019-02-16] MEDS: IBUPROFEN PO SCH ×2 (05:42→18:50)
[2019-02-16 08:22] LABS: Hematocrit 24.4 % (30.3-42.9); Hemoglobin 7.9 gm/dl (10.1-14.3)
[2019-02-16] MEDS ORDERED: PRENATAL VITAMIN PO SCH (10:00)
[2019-02-16] MEDS ORDERED: INFED IM ONE (10:00)
--- NOTE | 2019-02-16 10:11 | Progress Note ---
Assessment and Plan - Patient Problems (1) (normal spontaneous vaginal delivery) Current Visit: Yes Status: Acute Plan to address problem: Continue routine PP orders Anticipate d/c home in 24-48 hrs if H/H stable (2) Anemia Current Visit: Yes Status: Acute Qualifiers: Anemia type: iron deficiency Iron deficiency anemia type: inadequate dietary iron intake Qualified Code(s): D50.8 - Other iron deficiency anemias Plan to address problem: Infed 100 mg IM x 1 dose Ferrous sulfate 325 mg po BID H/H in am Continue po iron replacement after d/c home Subjective - Subjective Date of service: 02/16/19 Principal diagnosis: S/P ; Anemia Interval history: See Admission H & P and OB delivery summary Patient reports: appetite normal, voiding normally, pain well controlled, flatus, other (Very tired), no bowel movement [place]: doing well, bottle feeding Objective - Vital Signs Latest vital signs: Vital Signs Temp Pulse Resp BP BP Pulse Ox 02/16/19 07:23 98.3 F 63 20 120/72 98 02/16/19 01:29 97.8 F 94 H 18 120/73 96 02/15/19 22:02 98.9 F 66 18 119/56 100 02/15/19 14:30 111/52 02/15/19 14:28 98.4 F 82 18 97 02/15/19 13:50 98.4 F 16 02/15/19 13:16 87 137/65 02/15/19 13:02 88 131/59 02/15/19 12:46 90 125/60 02/15/19 12:31 107 H 122/60 02/15/19 12:19 88 113/57 02/15/19 12:16 93 H 115/57 02/15/19 12:02 94 H 123/67 02/15/19 11:50 91 H 95 02/15/19 11:48 101 H 88 02/15/19 11:46 108 H 122/55 02/15/19 11:45 91 H 99 02/15/19 11:40 90 97 02/15/19 11:35 80 98 02/15/19 11:34 94 H 87 02/15/19 11:32 85 115/55 02/15/19 11:30 92 H 97 02/15/19 11:27 88 93 02/15/19 11:25 74 97 02/15/19 11:21 89 91 02/15/19 11:20 94 H 96 02/15/19 11:17 90 136/66 02/15/19 11:15 86 90 02/15/19 11:10 89 95 02/15/19 11:05 92 H 99 02/15/19 11:01 82 113/55 02/15/19 11:00 83 98 02/15/19 10:55 91 H 99 02/15/19 10:50 88 98 02/15/19 10:47 83 109/56 02/15/19 10:45 88 98 02/15/19 10:40 85 98 02/15/19 10:35 98 H 98 02/15/19 10:32 77 120/66 02/15/19 10:30 93 H 98 02/15/19 10:25 81 98 02/15/19 10:20 87 98 02/15/19 10:18 86 107/54 02/15/19 10:15 93 H 98 02/15/19 10:10 86 97 Intake and Output 02/15/19 02/16/19 02/16/19 23:59 07:59 15:59 Output Total 800 Balance -800 Output: Urine 800 Void 800 Other: Total, Output Amount 800 # Voids Void 2 - Exam Breasts: Present: deferred Cardiovascular: Present: Regular rate Lungs: Present: Normal air movement Abdomen: Present: soft, normal bowel sounds Uterus: Present: firm, fundal height below umbilicus (U-1) Extremities: Present: normal Deep Tendon Reflex Grade: Normal +2 - Labs Labs: Abnormal lab results 02/16/19 Range/Units 07:56 Hgb 7.9 L (10.1-14.3) gm/dl Hct 24.4 L (30.3-42.9) %
[2019-02-16] MEDS: FEOSOL PO SCH (12:00)
[2019-02-17] MEDS: IBUPROFEN PO SCH ×3 (05:37→12:27)
[2019-02-17 06:24] LABS: Hematocrit 26.7 % (30.3-42.9)
--- NOTE | 2019-02-17 10:48 | Progress Note ---
Assessment and Plan A: PP Day #1 Anemia P: Follow Routine PP Orders Continue PO FeSO4 Depo Provera 150mg IM x 1 dose D/C Home in the AM RTO in 3 Weeks; plans PP Sterilization Subjective - Subjective Date of service: 02/17/19 Principal diagnosis: S/P ; Anemia Patient reports: appetite normal, voiding normally, pain well controlled, flatus, ambulating normally [place]: doing well, bottle feeding (and ) Objective - Vital Signs Latest vital signs: Vital Signs Temp Pulse Resp BP BP Pulse Ox 02/17/19 07:07 97.5 F L 69 18 100/51 02/16/19 16:15 98.6 F 80 20 108/60 96 02/16/19 12:14 98.4 F 80 20 115/64 99 Intake and Output 02/16/19 02/17/19 02/17/19 22:59 06:59 14:59 Intake Total 240 480 Balance 240 480 Intake: Oral 240 480 Other: Total, Intake Amount 240 480 # Voids Void 2 - Exam Breasts: Present: normal Cardiovascular: Present: Regular rate Lungs: Present: Clear to auscultation, Normal air movement Abdomen: Present: normal appearance, soft, normal bowel sounds Uterus: Present: normal, firm, fundal height below umbilicus Extremities: Present: normal - Labs Labs: Abnormal lab results 02/17/19 Range/Units 06:10 Hgb 9.0 L (10.1-14.3) gm/dl Hct 26.7 L (30.3-42.9) %
--- NOTE | 2019-02-17 10:49 | Discharge Summary ---
Providers - Providers Date of Admission: 02/15/19 01:33 Date of discharge: 02/18/19 Attending physician: ANANTH LIANG MD Primary care physician: ANANTH LIANG MD Hospitalization Reason for admission: active labor Delivery: Episiotomy: none Laceration: none Other procedures: none complications: none Discharge diagnosis: IUP at term delivered [place] baby: male Condition at discharge: Good Disposition: DC-01 TO HOME OR SELFCARE Plan - Provider Discharge Summary Additional instructions: [] Smoking cessation referral if applicable(refer to patient education folder for contact #) [] Refer to [facility] Call your doctor immediately for: * Fever > 100.5 * Heavy vaginal bleeding ( >1 pad per hour) * Severe persistent headache * Shortness of breath * Reddened, hot, painful area to leg or breast * Drainage or odor from incision. * Keep incision clean and dry at all times and follow doctor's instructions regarding bathing/showering - Follow up plan Follow up: ANANTH LIANG MD [Primary Care Provider] - 03/10/19
[2019-02-17] MEDS: FEOSOL PO SCH ×2 (10:59)
[2019-02-17] MEDS ORDERED: DEPO-PROVERA (CONTRACEPTION) IM NR (11:00)
[2019-02-17] MEDS: COLACE PO SCH ×2 (11:01)
[2019-02-17 17:05] VITALS: BP 112/64
--- NOTE | 2019-02-17 19:57 | Post Anesthesia Evaluation ---
- Post Anesthesia Evaluation Patient Participated: Yes Airway Patent: Yes Stable Respiratory Function: Yes Nausea/Vomiting: No Temp > 96.8F: Yes Pain Manageable: Yes Adequeate Hydration: Yes Anesthesia Complications: No Block Receding Appropriately: Yes Patient on Ventilator: No
== END 2019-02-17 17:09 | disposition home or self-care (01) | DRG 775 ==
LOC: TRG 21:13 → LD 02-15 01:33 → OB 02-15 14:44
PROVIDERS: ADMIT Obstetrics & Gynecology; ATTEND Obstetrics & Gynecology
PROC: 10E0XZZ Delivery of Products of Conception, External Approach (ICD-10-PCS; principal; 2019-02-15)
PROC: 3E0R3BZ Introduction of Anesthetic Agent into Spinal Canal, Percutaneous Approach (ICD-10-PCS; 2019-02-15)
PROC: 00HU33Z Insertion of Infusion Device into Spinal Canal, Percutaneous Approach (ICD-10-PCS; 2019-02-15)
DX: O48.0 Post-term pregnancy (principal); O99.824 Streptococcus B carrier state complicating childbirth; O99.52 Diseases of the respiratory system complicating childbirth; O99.62 Diseases of the digestive system complicating childbirth; O32.6XX0 Maternal care for compound presentation, not applicable or unspecified; O99.02 Anemia complicating childbirth; J45.909 Unspecified asthma, uncomplicated; K21.9 Gastro-esophageal reflux disease without esophagitis; D50.8 Other iron deficiency anemias; Z3A.40 40 weeks gestation of pregnancy; Z37.0 Single live birth
CPT/HCPCS: 36415; 59025; 76816; 76819; 85014; 85018; 85027; 86592; 86850; 86900; 86901; G0378; J0290; J1050; J1750; J2590; J3010; J7120

== ENCOUNTER 2021-11-08 06:09 | Outpatient (CLI) | payer BC, MEDICAID ==
[2021-11-08 10:19] LABS: Hematocrit 28.2 % (30.3-42.9); Hemoglobin 9.2 gm/dl (10.1-14.3); Mean Corpuscular HGB Conc 33 % (30-34); Mean Corpuscular Volume 76 fl (79-97); Platelet Count 328 K/mm3 (140-440); Red Blood Count 3.74 M/mm3 (3.65-5.03); Red Cell Distribution Width 16.5 % (13.2-15.2)
[2021-11-08 11:18] VITALS: BP 120/69
== END 2021-11-08 23:59 | disposition home or self-care (01) ==
LOC: LAB 06:09 → TRG 06:09 → LAB 23:59 → UNDOADMIN 11-13 09:06 → APU 11-13 09:06 → EDSTATUS 11-13 11:30 → LD 11-13 13:09 → APU 11-13 13:09 → UNDODISIN 11-14 08:35
PROVIDERS: ATTEND Obstetrics & Gynecology
DX: Z20.822 Contact with and (suspected) exposure to COVID-19 (principal)
CPT/HCPCS: 36415; 85027; 86592; U0003; G0378

== ENCOUNTER 2021-11-16 09:25 | Inpatient (IN) | payer BC, MEDICAID ==
[2021-11-16] MEDS ORDERED: BUPIVACAINE/PF (0.5%) 5 MG/1 ML 30 ML VIAL INFILTRATI ONE (09:33)
[2021-11-16] MEDS ORDERED: ONDANSETRON 4 MG/2 ML INJ ONE (09:33)
[2021-11-16] MEDS ORDERED: dexAMETHasone 20 MG/5 ML VIAL ONE (09:33)
[2021-11-16] MEDS ORDERED: KETOROLAC 30 MG/1 ML INJ ONE (09:33)
[2021-11-16] MEDS ORDERED: FAMOTIDINE 20 MG/2 ML INJ IV SCH (09:35)
[2021-11-16] MEDS ORDERED: BICITRA ORAL LIQD 30ML PO SCH (09:35)
[2021-11-16] MEDS ORDERED: LIDOCAINE MPF (2%) 20 MG/1 ML VIAL 5 ML ONE (09:38)
[2021-11-16] MEDS ORDERED: LACTATED RINGERS 1,000 ML IV SCH (09:45)
[2021-11-16] MEDS ORDERED: LIDOCAINE (2%) 20 MG/1 ML VIAL 20 ML MDV INFILTRATI SCH (10:00)
[2021-11-16] MEDS ORDERED: NalbUPHINE 10 MG/1 ML INJ IV PRN ×2 (10:00→11:22)
[2021-11-16] MEDS ORDERED: ONDANSETRON 4 MG/2 ML INJ IV PRN ×3 (10:00→13:13)
[2021-11-16] MEDS ORDERED: METOCLOPRAMIDE 10 MG/2 ML INJ IV SCH (10:00)
[2021-11-16] MEDS ORDERED: BUTORPHANOL 2 MG/1 ML INJ IV PRN (10:00)
[2021-11-16] MEDS ORDERED: OXYTOCIN DRIP 30 UNITS/500 ML BAG IV SCH (10:00)
[2021-11-16] MEDS ORDERED: ACETAMINOPHEN 325 MG TAB PO PRN (10:00)
[2021-11-16] MEDS ORDERED: fentaNYL 100 MCG/2 ML INJ IV PRN (10:00)
[2021-11-16] MEDS ORDERED: ceFAZolin/Water 2 GM/20 ML 2 GM/20 ML SYRINGE IV NR (10:00)
--- NOTE | 2021-11-16 10:06 | Anesthesia Day of Surgery ---
Anesthesia Day of Surgery - Day of Surgery Patient Examined: Yes Patient H&P Reviewed: Yes Patient is NPO: Yes Beta Blockers: No Cardiac Clearance: No Pulmonary Clearance: No French's Test: N/A
--- NOTE | 2021-11-16 10:06 | Anesthesia Consultation ---
Anesthesia Consult and Med Hx Date of service: 11/16/21 - Airway Anesthetic Teeth Evaluation: Good ROM Head & Neck: Adequate Mental/Hyoid Distance: Adequate Mallampati Class: Class II Intubation Access Assessment: Probably Good - Pulmonary Exam CTA: Yes - Cardiac Exam Cardiac Exam: RRR - Pre-Operative Health Status ASA Pre-Surgery Classification: ASA2 Proposed Anesthetic Plan: Spinal Nerve Block: TAP - Pulmonary Hx Smoking: No Hx Asthma: Yes (As a child) Hx Respiratory Symptoms: No SOB: No COPD: No Hx Pneumonia: No Hx Sleep Apnea: No - Cardiovascular System Hx Hypertension: No Hx Coronary Artery Disease: No Hx Heart Attack/AMI: No Hx Angina: No Hx Percutaneous Transluminal Coronary Angioplasty (PTCA): No Hx Cardia Arrhythmia: No Hx Pacemaker: No Hx Internal Defibrillator: No Hx Valvular Heart Disease: No Hx Heart Murmur: No Hx Peripheral Vascular Disease: No - Central Nervous System Hx Neuromuscular Disorder: No Hx Seizures: No CVA: No Hx Back Pain: No Hx Psychiatric Problems: No - Gastrointestinal Hx Ulcer: No Hx Gastroesophageal Reflux Disease: Yes - Endocrine Hx Renal Disease: No Hx End Stage Renal Disease: No Hx Cirrhosis: No Hx Liver Disease: No Hx Insulin Dependent Diabetes: No Hx Non-Insulin Dependent Diabetes: No Hx Thyroid Disease: No Hx Hypothyroidism: No Hx Hyperthyroidism: No - Hematic Hx Anemia: No Hx Sickle Cell Disease: No - Other Systems Hx Alcohol Use: Yes (Occas "Not lately") Hx Substance Use: No Hx Cancer: No Hx Obesity: No
[2021-11-16] MEDS ORDERED: diphenhydrAMINE 50 MG/ML VIAL IV PRN (11:22)
[2021-11-16] MEDS ORDERED: PROMETHAZINE 25 MG RECT SUPP PR PRN ×2 (11:22→13:13)
[2021-11-16] MEDS ORDERED: NALOXONE 0.4 MG/1 ML INJ IV PRN ×2 (11:22→13:13)
[2021-11-16] MEDS ORDERED: PROMETHAZINE 25 MG TAB PO PRN (11:22)
[2021-11-16] MEDS ORDERED: HYDROmorphone 1 MG/1 ML INJ IV PRN (11:22)
[2021-11-16 11:34] LABS: Basophils # (Auto) 0.1 K/mm3 (0.0-0.1); Eosinophils # (Auto) 0.1 K/mm3 (0.0-0.4); Eosinophils % (Auto) 1.3 % (0.0-4.3); Hematocrit 29.1 % (30.3-42.9); Hemoglobin 9.3 gm/dl (10.1-14.3); Lymphocytes # (Auto) 1.5 K/mm3 (1.2-5.4); Lymphocytes % (Auto) 18.5 % (13.4-35.0); Mean Corpuscular HGB Conc 32 % (30-34); Mean Corpuscular Volume 76 fl (79-97); Monocytes # (Auto) 0.8 K/mm3 (0.0-0.8); Monocytes % (Auto) 9.9 % (0.0-7.3); Platelet Count 320 K/mm3 (140-440); Red Blood Count 3.83 M/mm3 (3.65-5.03); Red Cell Distribution Width 17.2 % (13.2-15.2)
[2021-11-16] MEDS ORDERED: SODIUM CHLORIDE 0.9% 500 ML 500 ML IV ONE (12:00)
--- NOTE | 2021-11-16 12:06 | History and Physical Report ---
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: abnormal PAP smear Family/Genetic History: none Social history: no significant social history - Obstetrical History Expected Date of Delivery: 11/24/21 Actual Gestation: 38 Week(s) 6 Day(s) : 6 Para: 3 Medications and Allergies Allergies Allergy/AdvReac Type Severity Reaction Status Date / Time No Known Allergies Allergy Verified 11/07/21 16:56 Home Medications Medication Instructions Recorded Confirmed Last Taken Type Vit-Fe Fumar-FA [ 1 tab PO QDAY 02/15/19 11/07/21 02/13/19 History Vitamin] Active Meds: Active Medications Acetaminophen (Acetaminophen 325 Mg Tab) 650 mg PO Q4H PRN PRN Reason: Pain, Mild (1-3) Butorphanol Tartrate (Butorphanol 2 Mg/1 Ml Inj) 2 mg IV Q2H PRN PRN Reason: Pain , Severe (7-10) Citric Acid/Sodium Citrate (Bicitra Oral Liqd 30ml) 30 ml PO PREOP [place] Stop: 11/16/21 18:00 Last Admin: 11/16/21 11:29 Dose: 30 ml Diphenhydramine HCl (Diphenhydramine 50 Mg/Ml Vial) 12.5 mg IV Q2H PRN PRN Reason: Itching Famotidine (Famotidine 20 Mg/2 Ml Inj) 20 mg IV PREOP [place] Stop: 11/16/21 18:00 Last Admin: 11/16/21 11:29 Dose: 20 mg Fentanyl (Fentanyl 100 Mcg/2 Ml Inj) 100 mcg IV Q2H PRN PRN Reason: Pain,Severe (7-10) LABOR PAIN Hydromorphone HCl (Hydromorphone 1 Mg/1 Ml Inj) 0.5 mg IV Q4H PRN PRN Reason: breakthrough pain > 7/10 Lactated Ringer's (Lactated Ringers) 1,000 mls @ 2,250 mls/hr IV PREOP [place] Stop: 11/17/21 10:12 Oxytocin/Sodium Chloride (Pitocin/Ns 30 Unit/500ml) 30 units in 500 mls @ 0 mls/hr IV TITR [place]; Protocol Cefazolin Sodium (Ancef/Sterile Water 2 Gm/20 Ml) 2 gm in 20 mls @ 80 mls/hr IV PREOP NR; Protocol Stop: 11/16/21 18:00 Sodium Chloride (Nacl 0.9% 500 Ml) 500 mls @ 0 mls/hr IV ONCE ONE Stop: 11/16/21 12:01 Lidocaine (Lidocaine (2%) 20 Mg/1 Ml Vial 20 Ml Mdv) 20 ml INFILTRATI ONCE@1000 [place] Stop: 11/17/21 09:59 Metoclopramide HCl (Metoclopramide 10 Mg/2 Ml Inj) 10 mg IV ONCE@1000 [facility] Stop: 11/16/21 18:00 Last Admin: 11/16/21 11:24 Dose: 10 mg Nalbuphine HCl (Nalbuphine 10 Mg/1 Ml Inj) 10 mg IV Q2H PRN PRN Reason: Pain, Moderate (4-6) Nalbuphine HCl (Nalbuphine 10 Mg/1 Ml Inj) 2.5 mg IV Q2H PRN PRN Reason: Itching Naloxone HCl (Naloxone 0.4 Mg/1 Ml Inj) 0.2 mg IV Q2MIN PRN PRN Reason: Res Rate </= 8 or 02 SAT < 92% Ondansetron HCl (Ondansetron 4 Mg/2 Ml Inj) 4 mg IV Q8H PRN PRN Reason: Nausea And Vomiting Ondansetron HCl (Ondansetron 4 Mg/2 Ml Inj) 4 mg IV Q8H PRN PRN Reason: Nausea And Vomiting Promethazine HCl (Promethazine 25 Mg Tab) 25 mg PO Q6H PRN PRN Reason: Nausea And Vomiting Promethazine HCl (Promethazine 25 Mg Rect Supp) 25 mg [place] Q6H PRN PRN Reason: Nausea And Vomiting Review of Systems All systems: negative (none) - Vital Signs Vital signs: Vital Signs Pulse Pulse Ox 98 H 99 11/16/21 09:49 11/16/21 09:49 Temp Pulse Resp BP Pulse Ox 98.1 F 91 H 18 126/74 99 11/16/21 09:57 11/16/21 11:39 11/16/21 09:57 11/16/21 09:57 11/16/21 11:39 - Physical Exam Breasts: Positive: deferred Cardiovascular: Regular rate Lungs: Positive: Clear to auscultation Abdomen: Positive: normal appearance, soft, normal bowel sounds, other (gravid) Genitourinary (Female): Positive: normal external genitalia, normal perenium Vulva: both: normal Vagina: Positive: normal moisture Uterus: Positive: enlarged Anus/Rectum: Positive: normal perianal skin Extremities: Positive: normal Deep Tendon Reflex Grade: Normal +2 - Obstetrical FHR: category 1 Results Result Diagrams: 11/16/21 10:50 Abnormal lab results 11/16/21 11/16/21 Range/Units 10:50 10:50 Hgb 9.3 L (10.1-14.3) gm/dl Hct 29.1 L (30.3-42.9) % MCV 76 L (79-97) fl MCH 24 L (28-32) pg RDW 17.2 H (13.2-15.2) % [place] % (Auto) 9.9 H (0.0-7.3) % Crossmatch See Detail All other labs normal. Assessment and Plan NPO recreation therapy director to or for procedure informed consent obtained Brittani Terry MD
--- NOTE | 2021-11-16 12:07 | Procedure Note ---
OB Delivery Note - Section Preop diagnosis: desires sterilization, other (twin gestation at 38.6 weeks,desires operative delivery) Postop diagnosis: same section procedure: primary low transverse, bilateral tubal ligation Disposition: PACU Complications: none Narrative: Preop diagnosis: IUP at 38.6 weeks, twin gestation requesting delivery: Multiparity desiring surgical sterilization Postop diagnosis: Same, delivered Procedure: Primary low transverse section via Pfannenstiel incision with Tariq Vela Bilateral Tubal ligation Surgeon: Dr. Nora Terry Anesthesia spinal Complications none EBL 500ml IV fluids 1000mL Urine output 200mL, clear Drains Ferrari to gravity Findings: Normal uterus tubes and ovaries bilaterally Baby A: male 8/9 2900gms Baby B: female 8/9 2765gms Procedure: Patient was consented in OB triage, taken to the operating room where she received excellent spinal anesthesia. She was then placed in the dorsal supine position with a leftward tilt. The abdomen was prepped and draped in a sterile fashion, and a timeout was verified. Adequate anesthesia was confirmed prior to the skin incision. A Pfannenstiel skin incision was made with a scalpel taken down to the underlying structures and the fascia was incised in the midline. The incision was extended laterally with curved Wilson scissors, the superior and inferior aspects of the fascial incisions were grasped with Barrie clamps and the rectus muscles dissected sharply. The abdomen was entered bluntly in the midline carried down inferiorly with good visualization of the bladder. The vesicouterine peritoneum was tented with Cypriot forceps and incised in the midline with Metzenbaum scissors and the vesicouterine peritoneum taken down sharply. The uterine incision was then made sharply with a scalpel. The inferior and superior aspect of the uterine incisions were extended bluntly, the baby's head was delivered atraumatically. The remainder of the delivery was uncomplicated, no nuchal cord. The cord was clamped and cut and BAby A handed to waiting NICU team.Baby B was then delivered atraumatically in breech presentation, tight nuchal cordx1 reduced at delivery. The placenta with three-vessel cord delivered manually. The uterus was then cleared of all clots and debris and the uterus exteriorized. The uterine incision was closed in 2 layers of 0 vicryl with excellent hemostasis. Attention then turned to the fallopian tubes which were suture ligated in the usual fashion with excellent hemostasis. The abdomen was then irrigated with warm normal saline and the uterus placed back into the abdomen atraumatically. A second look at the uterine incision assured hemostasis. The peritoneum was closed with 3-0 Vicryl, the rectus muscles approximated with 3-0 Vicryl, and the fascia closed with 0 Vicryl in the usual fashion. The subcuticular structures were closed with interrupted sutures of 3-0 Vicryl and the skin closed with 4-0 Monocryl. A pressure dressing was applied. All sponge needle and instrument counts were correct x2. There were no complications. Mom and baby stable to PACU. EBL 500 mL Imtiaz Terry MD
[2021-11-16] MEDS ORDERED: METHYLERGONOVINE MALEATE 0.2 MG/ML VIAL IM ONE (12:20)
[2021-11-16] MEDS ORDERED: PHENYLEPHRINE 10 MG/1 ML INJ SDV ONE (12:35)
[2021-11-16] MEDS ORDERED: ePHEDrine SULFATE 50 MG/1 ML INJ ONE (12:35)
[2021-11-16] MEDS ORDERED: LACTATED RINGERS 1,000 ML ONE (12:41)
--- NOTE | 2021-11-16 12:41 | Progress Note ---
Spinal Anesthesia Block - Spinal Anesthesia Block Start Time: 12:05 Stop Time: 12:13 Performed by:: [facility] Procedure: Spinal anesthesia block is being performed for [c/s]. H&P, labs have been reviewed. Patient's questions and concerns have been answered. Informed consent has been performed. Timeout has was performed. Patient in sitting position on side of bed. Sterile prep and drape was performed. 3 mL 1% lidocaine skin wheal at L [3]-L [4]. Needle introducer advanced. 25-gauge spinal needle advanced, [+] CSF [-] blood. [Marcaine 10mg and Precedex 5mcg] Spinal dose was given. All needles removed. Patient tolerated procedure well.
[2021-11-16] MEDS ORDERED: LANOLIN/ZINC/DIMETHICONE (LANSINOH) 7 GM TP PRN (13:13)
[2021-11-16] MEDS ORDERED: WITCH HAZEL/ GLYCERIN PAD TP PRN (13:13)
[2021-11-16] MEDS ORDERED: KETOROLAC 30 MG/1 ML INJ IV PRN (13:13)
[2021-11-16] MEDS ORDERED: HYDROcodone/ACETAMINOPHEN 5-325 MG TAB PO PRN (13:13)
[2021-11-16] MEDS ORDERED: MORPHINE 2 MG/1 ML INJ IV PRN (13:13)
[2021-11-16] MEDS ORDERED: IBUPROFEN 600 MG TAB PO PRN (13:13)
[2021-11-16] MEDS ORDERED: MORPHINE 4 MG/1 ML INJ IV PRN (13:13)
[2021-11-16] MEDS: KETOROLAC 30 MG/1 ML INJ IV PRN (18:25)
[2021-11-17 01:10] LABS: Hematocrit 26.7 % (30.3-42.9); Hemoglobin 8.8 gm/dl (10.1-14.3)
[2021-11-17] MEDS: KETOROLAC 30 MG/1 ML INJ IV PRN (02:51)
--- NOTE | 2021-11-17 07:12 | Progress Note ---
Assessment and Plan A: /postop day 1 S/P primary low transverse section for twin gestation and BTL. Anemia. P: Supplement with iron when patient is passing gas and eating. Advance diet as tolerated. Continue routine /postop care. Subjective - Subjective Date of service: 11/17/21 Principal diagnosis: day 1 S/P primary LTCS with BTL Patient reports: appetite normal, voiding normally, no flatus, no nauseated [place]: doing well Objective - Vital Signs Latest vital signs: Vital Signs Temp Pulse Resp BP BP Pulse Ox Pulse Ox 11/17/21 05:17 97.8 F 71 20 110/69 96 11/17/21 02:51 12 11/17/21 00:10 98.2 F 63 18 138/63 100 11/16/21 22:39 12 11/16/21 20:35 98 11/16/21 20:33 98.2 F 68 20 126/68 97 11/16/21 16:00 98.7 F 65 18 144/75 98 98 11/16/21 14:50 50 L 148/83 99 11/16/21 14:20 47 L 16 138/76 99 11/16/21 14:05 46 L 18 135/74 99 11/16/21 13:50 46 L 15 132/69 100 11/16/21 13:35 51 L 18 119/53 100 11/16/21 13:30 55 L 15 122/59 100 11/16/21 13:25 52 L 18 111/69 99 11/16/21 13:17 98.5 F 68 16 109/66 100 11/16/21 11:39 91 H 99 11/16/21 11:34 93 H 99 11/16/21 11:29 85 99 11/16/21 11:24 87 98 11/16/21 11:19 90 99 11/16/21 11:14 88 99 11/16/21 11:09 99 H 100 11/16/21 11:04 90 100 11/16/21 10:59 94 H 99 11/16/21 10:54 85 100 11/16/21 10:49 87 98 11/16/21 10:44 98 H 99 11/16/21 10:39 86 98 11/16/21 10:34 104 H 99 11/16/21 10:29 98 H 99 11/16/21 10:24 97 H 99 11/16/21 10:19 87 98 11/16/21 10:14 102 H 98 11/16/21 10:09 121 H 98 11/16/21 10:04 84 99 11/16/21 09:59 94 H 99 11/16/21 09:57 98.1 F 96 H 18 126/74 98 11/16/21 09:54 116 H 98 11/16/21 09:50 91 H 126/74 11/16/21 09:49 98 H 99 Intake and Output 11/16/21 11/16/21 11/17/21 15:59 23:59 07:59 Intake Total 1200 240 Output Total 400 800 400 Balance 800 -560 -400 Intake: IV 1200 Oral 240 Output: Urine 400 800 400 Void 800 400 Other: Total, Intake Amount 240 Total, Output Amount 800 400 Weight 77.111 kg - Exam Cardiovascular: Present: Regular rate Lungs: Present: Clear to auscultation Abdomen: Present: normal appearance, soft, other (hypoactive bowel sounds). Absent: distention, tenderness, guarding, rigidity Uterus: Present: normal, firm, fundal height below umbilicus. Absent: bogginess, tenderness Extremities: Absent: tenderness Incision: Present: dry, dressed - Labs Labs: Abnormal lab results 11/16/21 11/16/21 11/17/21 Range/Units 10:50 10:50 00:39 Hgb 9.3 L 8.8 L (10.1-14.3) gm/dl Hct 29.1 L 26.7 L (30.3-42.9) % MCV 76 L (79-97) fl MCH 24 L (28-32) pg RDW 17.2 H (13.2-15.2) % [place] % (Auto) 9.9 H (0.0-7.3) % Crossmatch See Detail
[2021-11-17] MEDS: FERROUS SULFATE 325 MG TAB PO SCH (10:04)
[2021-11-17] MEDS ORDERED: MAGNESIUM HYDROXIDE (MOM) ORAL LIQD UDC ONE (20:16)
[2021-11-17] MEDS: oxyCODONE /ACETAMINOPHEN 5-325MG TAB PO PRN (20:22)
[2021-11-17] MEDS ORDERED: MAGNESIUM HYDROXIDE (MOM) ORAL LIQD UDC PO PRN (21:11)
[2021-11-18] MEDS: oxyCODONE /ACETAMINOPHEN 5-325MG TAB PO PRN ×3 (06:15→21:09)
[2021-11-18] MEDS: IBUPROFEN 800 MG TAB PO PRN ×2 (06:15→15:30)
[2021-11-18] MEDS ORDERED: SIMETHICONE 80 MG CHEW TAB PO PRN (08:59)
--- NOTE | 2021-11-18 09:15 | Progress Note ---
Assessment and Plan A: /postop day 2 S/P primary low transverse section (twin gestation) with BTL. Anemia. P: Continue clear liquid diet until patient passes gas. Mylicon ordered. Encouraged patient to ambulate and to drink warm liquids today. Iron supplementation when eating and passing gas. Continue routine /postop care. Remove dressing today. Subjective - Subjective Date of service: 11/18/21 Principal diagnosis: day 2 S/P primary LTCS with BTL Patient reports: appetite normal, voiding normally, pain well controlled, ambulating normally, no dizzy ambulation, no flatus, no nauseated [place]: doing well Objective - Vital Signs Latest vital signs: Vital Signs Temp Pulse Resp BP Pulse Ox 11/18/21 07:51 98.0 F 60 18 100/53 96 11/17/21 22:19 98.2 F 72 20 109/62 97 11/17/21 16:04 97.9 F 89 18 117/84 98 Intake and Output 11/17/21 11/18/21 11/18/21 23:59 07:59 15:59 Intake Total 1080 240 Output Total 150 Balance 930 240 Intake: Oral 480 240 Intake, Free Water 600 Output: Urine 150 Void 150 Other: Total, Intake Amount 240 240 Total, Output Amount 150 # Voids Void 1 1 1 - Exam Cardiovascular: Present: Regular rate, No murmurs Lungs: Present: Clear to auscultation Abdomen: Present: normal appearance, soft, normal bowel sounds. Absent: distention, tenderness, guarding, rigidity Uterus: Present: normal, firm, fundal height below umbilicus. Absent: bogginess, tenderness Extremities: Absent: tenderness, edema Incision: Present: dry, dressed
[2021-11-18] MEDS: FERROUS SULFATE 325 MG TAB PO SCH (10:22)
[2021-11-19] MEDS: IBUPROFEN 800 MG TAB PO PRN ×2 (01:08→10:22)
[2021-11-19] MEDS: oxyCODONE /ACETAMINOPHEN 5-325MG TAB PO PRN ×2 (05:10→10:22)
--- NOTE | 2021-11-19 07:33 | Progress Note ---
Assessment and Plan A: /postop day 3 S/P primary LTCS with BTL (twins). Anemia. P: Discharge patient home today. Discussed with patient /postop discharge instructions and warning signs. Advised patient to continue taking her vitamin and iron supplements at home. Advised patient to avoid intercourse, lifting, driving, stair climbing, tub baths (patient may take showers). Advised patient to follow up at [facility] office in 3 days. Patient voiced understanding of all instructions. Subjective - Subjective Date of service: 11/19/21 Principal diagnosis: day 3 S/P primary LTCS with BTL Interval history: Patient desires discharge home today. Patient reports: appetite normal, voiding normally, pain well controlled, flatus, ambulating normally, no dizzy ambulation, no nauseated : doing well Objective - Vital Signs Latest vital signs: Vital Signs Temp Pulse Resp BP Pulse Ox Pulse Ox 11/19/21 06:10 18 11/19/21 05:10 18 11/19/21 02:08 18 11/19/21 01:08 18 11/19/21 00:24 97.9 F 63 20 106/54 98 11/18/21 22:09 18 11/18/21 21:09 18 11/18/21 20:00 100 11/18/21 16:15 98.6 F 86 18 118/72 98 11/18/21 08:00 98 11/18/21 07:51 98.0 F 60 18 100/53 96 Intake and Output 11/18/21 11/18/21 11/19/21 15:59 23:59 07:59 Intake Total 240 1680 120 Balance 240 1680 120 Intake: Oral 240 480 120 Intake, Free Water 1200 Other: Total, Intake Amount 240 480 120 # Voids Void 1 1 1 - Exam Cardiovascular: Present: Regular rate Lungs: Present: Clear to auscultation Abdomen: Present: normal appearance, soft, normal bowel sounds. Absent: distention, tenderness, guarding, rigidity Uterus: Present: normal, firm, fundal height below umbilicus. Absent: bogginess, tenderness Extremities: Present: normal. Absent: tenderness, edema Incision: Present: normal, dry, intact
--- NOTE | 2021-11-19 07:43 | Discharge Summary ---
Providers - Providers Date of Admission: 11/16/21 09:27 Date of discharge: 11/19/21 Attending physician: MOISE LAGUNA MD Primary care physician: MOISE LAGUNA MD Hospitalization Reason for admission: section Delivery: Procedure: primary low transverse Incision: dry, intact Other procedures: tubal ligation complications: none Discharge diagnosis: IUP at term delivered baby: twins Pertinent studies: Labs Hospital course: Stable hospital course Condition at discharge: Good Disposition: 01 HOME / SELF CARE / HOMELESS - Discharge Diagnoses (1) Term delivered Status: Acute (2) Anemia Status: Acute Qualifiers: Anemia type: iron deficiency Iron deficiency anemia type: inadequate dietary iron intake Qualified Code(s): D50.8 - Other iron deficiency anemias Plan - Discharge Medications Prescriptions: Ibuprofen [Motrin] 600 mg PO Q8H PRN #60 tablet PRN Reason: Pain oxyCODONE /ACETAMINOPHEN [Percocet 5/325] 1 tab PO Q6HR PRN #20 tablet PRN Reason: Pain - Provider Discharge Summary Activity: routine, no sex for 6 weeks, no heavy lifting 4 weeks, no strenuous exercise Diet: routine Instructions: routine Additional instructions: Continue taking your vitamin and iron supplements at home. Follow up at [facility] in 3 days. Call your doctor immediately for: * Fever > 100.5 * Heavy vaginal bleeding ( >1 pad per hour) * Severe persistent headache * Shortness of breath * Reddened, hot, painful area to leg or breast * Drainage or odor from incision. * Keep incision clean and dry at all times and follow doctor's instructions regarding bathing/showering - Follow up plan Follow up: MILDRED SHERMAN CNM [Advanced Practice Nurse] - 3 Days
[2021-11-19] MEDS: FERROUS SULFATE 325 MG TAB PO SCH (10:22)
[2021-11-19 15:40] VITALS: BP 117/70
== END 2021-11-19 15:35 | disposition home or self-care (01) | DRG 785 ==
LOC: LDOR 09:25 → APU 09:27 → OB 15:53
PROVIDERS: ADMIT Obstetrics & Gynecology; ATTEND Obstetrics & Gynecology
PROC: 0UB70ZZ Excision of Bilateral Fallopian Tubes, Open Approach (ICD-10-PCS; principal; 2021-11-16)
PROC: 10D00Z1 Extraction of Products of Conception, Low, Open Approach (ICD-10-PCS; 2021-11-16)
DX: O30.003 Twin pregnancy, unspecified number of placenta and unspecified number of amniotic sacs, third trimester (principal); D50.9 Iron deficiency anemia, unspecified; O99.52 Diseases of the respiratory system complicating childbirth; O99.62 Diseases of the digestive system complicating childbirth; J45.909 Unspecified asthma, uncomplicated; K21.9 Gastro-esophageal reflux disease without esophagitis; D56.0 Alpha thalassemia; O99.02 Anemia complicating childbirth; O69.1XX0 Labor and delivery complicated by cord around neck, with compression, not applicable or unspecified; Z20.822 Contact with and (suspected) exposure to COVID-19; Z30.2 Encounter for sterilization; Z3A.38 38 weeks gestation of pregnancy; Z37.2 Twins, both liveborn
CPT/HCPCS: 36415; 85014; 85018; 85025; 86850; 86900; 86901; 86920; 88302; 99211; G0378; J3490; J7121; G0463; J1100; J1170; J1885; J2270; J2370; J2405; J2765; J7120; U0003